=== PATIENT | female | born 1975 | race Caucasian/White ===

== ENCOUNTER 2018-07-26 04:04 | Emergency (ER) | payer BC, MEDICAID ==
[2018-07-26] MEDS ORDERED: Acetaminophen 1,000 MG in Premix Bag 1 BAG IV ONE (04:40)
[2018-07-26] MEDS ORDERED: Metoclopramide 10 MG/2 ML SDV IVPUSH ONE (04:41)
[2018-07-26] MEDS ORDERED: Ketorolac 30 MG/ML SDV IVPUSH ONE (04:41)
[2018-07-26] MEDS ORDERED: diphenhydrAMINE 50 MG/ML SDV IVPUSH ONE (04:41)
[2018-07-26] MEDS ORDERED: Sodium Chloride 0.9% 1,000 ML IV SCH (04:45)
--- NOTE | 2018-07-26 05:03 | EDM.PDOC ---
ED HPI GENERAL MEDICAL PROBLEM - General Chief Complaint: Headache Stated Complaint: MIGRAINE Time Seen by Provider: 07/26/18 04:10 Source of Information: Reports: Patient History Limitations: Reports: No Limitations - History of Present Illness INITIAL COMMENTS - FREE TEXT/NARRATIVE: Diane is a. 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 She did not have paresis phonophobia weakness nausea vomiting fever chills cough ataxia fortification spectra or scintillating scotomas. Her headache is persistent throughout surgery morning since 1500 yesterday (13 hours). - Related Data Allergies Allergy/AdvReac Type Severity Reaction Status Date / Time Sulfa (Sulfonamide Allergy Unknown unknown Verified 07/26/18 04:14 Antibiotics) Home Meds: Home Meds SUMAtriptan [Imitrex] 6 mg SQ ASDIRECTED 02/08/15 [History] Social & Family History - Family History Family Medical History: Noncontributory - Tobacco Use Smoking Status *Q: Never Smoker Second Hand Smoke Exposure: No - Caffeine Use Caffeine Use: Reports: Coffee - Alcohol Use Days Per Week of Alcohol Use: 2 Number of Drinks Per Day: 2 Total Drinks Per Week: 4 - Recreational Drug Use Recreational Drug Use: No ED ROS GENERAL - Review of Systems Review Of Systems: ROS reveals no pertinent complaints other than HPI. 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 Exam Limited By: No Limitations General Appearance: Alert, Severe Distress, Other (She is very stoic woman) Eye Exam: Bilateral Eye: Normal Inspection, Other (Normal EOMs and pupillary constriction and dilation response to light moderate photophobia) Ears: Normal External Exam Nose: Normal Inspection, Normal Mucosa Throat/Mouth: Normal Inspection, Normal Lips, Normal Teeth, Normal Gums, Normal Oropharynx, Normal Voice Head Exam: Atraumatic, Normocephalic Neck: Normal Inspection, Supple, Non-Tender, Full Range of Motion, Other (No bruits) Respiratory/Chest: No Respiratory Distress, Lungs Clear, Normal Breath Sounds, No Accessory Muscle Use, Chest Non-Tender Cardiovascular: Normal Peripheral Pulses, Regular Rate, Rhythm, No Edema, No Gallop, No JVD, No Murmur, No Rub GI/Abdominal: Normal Bowel Sounds, Soft, Non-Tender, No Organomegaly, No Distention, No Mass (Female) Exam: Deferred Rectal (Female) Exam: Deferred Neuro Exam (Abbreviated): Alert, Oriented, CN II-XII Intact, Normal Cognition, Normal Gait, Normal Reflexes, No Motor/Sensory Deficits DTR: 1+: Bicep (R), Bicep (L), Patella (R), Patella (L), Achilles (R), Achilles (L) Back Exam: Normal Inspection, Full Range of Motion Extremities: Normal Inspection, Normal Range of Motion, Non-Tender, No Pedal Edema, Normal Capillary Refill Psychiatric: Normal Affect, Normal Mood Skin Exam: Warm, Dry, Intact, Normal Color Course - Vital Signs Last Recorded V/S: Last Vital Signs Temp 36.8 C 07/26/18 04:10 Pulse 95 07/26/18 04:10 Resp 18 07/26/18 04:10 BP 153/102 H 07/26/18 04:10 Pulse Ox 100 07/26/18 04:10 - Orders/Labs/Meds Orders: Active Orders 24 hr Category Date Time Status Sodium Chloride 0.9% [Normal Saline] 1,000 ml Med 07/26/18 04:45 Active IV ASDIRECTED Medication Orders Sodium Chloride (Normal Saline) 1,000 mls @ 999 mls/hr IV ASDIRECTED JASON Meds: Medications Generic Name Dose Route Start Last Admin Trade Name Freq PRN Reason Stop Dose Admin Sodium Chloride 1,000 mls @ 999 mls/hr 07/26/18 04:45 Normal Saline IV ASDIRECTED JASON Discontinued Medications Generic Name Dose Route Start Last Admin Trade Name Freq PRN Reason Stop Dose Admin Diphenhydramine HCl 50 mg 07/26/18 04:41 Benadryl IVPUSH 07/26/18 04:42 ONETIME ONE Acetaminophen 1,000 mg/ Premix 100 mls @ 400 mls/hr 07/26/18 04:40 IV 07/26/18 04:54 NOW ONE Ketorolac Tromethamine 30 mg 07/26/18 04:41 Toradol IVPUSH 07/26/18 04:42 ONETIME ONE Metoclopramide HCl 10 mg 07/26/18 04:41 Reglan IVPUSH 07/26/18 04:42 ONETIME ONE Departure - Departure Time of Disposition: 05:00 (Migraine headache with photophobia dizziness dyesthesia or paresis. Good response to pregaln, benadryl, toradol, Ofirmev and 1000 ml NS.) Disposition: Home, Self-Care 01 Condition: Good Clinical Impression: Migraine Qualifiers: Migraine type: without aura Status migrainosus presence: without status migrainosus Intractability: not intractable Qualified Code(s): G43.009 - Migraine without aura, not intractable, without status migrainosus - Discharge Information *PRESCRIPTION DRUG MONITORING PROGRAM REVIEWED*: Not Applicable *COPY OF PRESCRIPTION DRUG MONITORING REPORT IN PATIENT TRIXIE: Not Applicable Referrals: Clark Stevens PA [Primary Care Provider] - Forms: ED Department Discharge Additional Instructions: be sure to take stat Imitrex at the onset the headache as a back up you can take concurrently stat 1000 mg tylenol, 10 mg of reglan (metaclopramide)a, 10 mg of toradol, and 50 mg of benadryl orally now that you have the Imitrex shot prescribed if the the oraly Imitrex and the other med do not work then go to your Imitrex shot follow up with our MD/health care provider in the next 7 days, earlier if if you are worse be sure to get good sleep and to drink 2 quarts of fluid a day - My Orders Last 24 Hours: My Active Orders 07/26/18 04:45 Sodium Chloride 0.9% [Normal Saline] 1,000 ml IV ASDIRECTED - Assessment/Plan Last 24 Hours: My Active Orders 07/26/18 04:45 Sodium Chloride 0.9% [Normal Saline] 1,000 ml IV ASDIRECTED
[2018-07-26 06:22] VITALS: BP 143/78
== END 2018-07-26 06:20 | disposition home or self-care (01) ==
LOC: FB.ED 04:04
DX: G43.009 Migraine without aura, not intractable, without status migrainosus (principal); Z88.2 Allergy status to sulfonamides
CPT/HCPCS: 96361; 96374; 96375; 99283; J0131; J1200; J1885; J2765; J7030